=== PATIENT | male | born 1975 | race Caucasian/White ===

== ENCOUNTER 2022-11-18 06:50 | Emergency (ER) | payer OTHER ==
[~2022-11-18] VITALS: Ht 185.4 cm; Wt 83.9 kg
[~2022-11-18 06:50] MED LIST: HYDR-4384 PO; PARO10TA86 PO
--- NOTE | 2022-11-18 07:00 | NUR ---
Patient AOx4, able to express his concerns. Patietn states he fell and due to that he has been experiencing right leg pain that goes up to the right hip. Discussed plan of care, patient verbalized agreement.
[2022-11-18] MEDS ORDERED: KETOROLAC TROMETHAMINE INJ 60 MG/2 ML VIAL IM ONE (07:30)
[2022-11-18] MEDS ORDERED: KETOROLAC TROMETHAMINE INJ 30 MG/ML VIAL ONE (07:44)
--- NOTE | 2022-11-18 07:45 | NUR ---
TONE ROJAS AT BEDSIDE FOR XRAY
[2022-11-18] MEDS ORDERED: IBUPROFEN 400 MG TABLET ONE (07:57)
[2022-11-18] MEDS ORDERED: IBUPROFEN 400 MG TABLET PO ONE (08:00)
--- NOTE | 2022-11-18 08:03 | NUR ---
pt refused meds toradol 30mg IM AND MOTRIN 800MG PO. DR BURK INFORMED
--- NOTE | 2022-11-18 08:17 | NUR ---
DR BURK AT BEDSIDE FOR DISCHARGE INFO., PT INFORMED HE NEEDS A WALKER PRIOR TO DISCHARGE, CALLED [facility]. NO RESPONSE YET
[2022-11-18 09:31] VITALS: BP 112/70
--- NOTE | 2022-11-18 09:31 | NUR ---
Crutches provided- gait training done by John MCDONALD. Pt ambulatory Gait even/steady Patient discharged to previous living condition in stable condition. Declines detention- resources given. Breakfast served prior to dc. Ate 100%. Written and verbal after care instructions given. Patient verbalizes understanding of instruction.
== END 2022-11-18 09:34 | disposition home or self-care (01) ==
LOC: ER 07:04
DX: M25.551 Pain in right hip (principal); I10 Essential (primary) hypertension; E11.9 Type 2 diabetes mellitus without complications; F32.A Depression, unspecified; Z59.00 Homelessness unspecified; Z79.899 Other long term (current) drug therapy; Z88.5 Allergy status to narcotic agent; W19.XXXA Unspecified fall, initial encounter; Y93.89 Activity, other specified; Y92.89 Other specified places as the place of occurrence of the external cause; Y99.8 Other external cause status
CPT/HCPCS: 99283; 73502; J1885

== ENCOUNTER 2024-10-28 13:38 | Emergency (ER) | payer OTHER ==
[~2024-10-28] VITALS: Ht 182.9 cm; Wt 77.1 kg
[2024-10-28 13:55] VITALS: BP 122/64; TEMP 97.4; O2SAT 97
[2024-10-28] MEDS ORDERED: ONDANSETRON HCL/PF 4 MG/2 ML VIAL ONE (15:20)
[2024-10-28 15:25] LABS: BASOPHILS % (AUTO) 0.5 % (0.0-2.0); EOSINOPHILS # (AUTO) 0.1 K/uL (0.0-0.7); HEMATOCRIT 41 % (39-51); HEMOGLOBIN 13.3 g/dL (13.5-17.5); LYMPHOCYTES % (AUTO) 19.7 % (20.0-44.0); MEAN CORPUSCULAR HEMOGLOBIN 22 PG (26.0-33.0); MEAN CORPUSCULAR HGB CONC 33 g/dl (31.0-36.0); MEAN CORPUSCULAR VOLUME 67 fL (80-96); MONOCYTES # (AUTO) 0.3 K/uL (0.1-1.30); MONOCYTES % (AUTO) 2.4 % (2.0-12.0); NEUTROPHILS # (AUTO) 7.9 K/uL (1.8-8.9); NEUTROPHILS % (AUTO) 76.4 % (43.0-81.0); PLATELET COUNT (AUTO) 358 K/uL (150-450); RED BLOOD CELL COUNT(AUTO) 6.11 MIL/uL (4.5-6.0); RED CELL DISTRIBUTION WIDTH 15.5 % (11.5-15.0); WHITE BLOOD COUNT (AUTO) 10.4 K/uL (4.3-11.0)
[2024-10-28] MEDS: IV NS 0.9% 1,000 ML BAG IV ONE (15:28)
[2024-10-28] MEDS: ONDANSETRON HCL/PF 4 MG/2 ML VIAL IVP ONE (15:28)
[2024-10-28 15:47] LABS: APPEARANCE,URINE CLEAR (CLEAR); BILIRUBIN,URINE NEGATIVE (NEGATIVE); BLOOD, URINE NEGATIVE Ery/uL (NEGATIVE); COLOR,URINE YELLOW (YELLOW); KETONES,URINE TRACE mg/dL (NEGATIVE); LEUKOCYTE ESTERASE ,URINE NEGATIVE (NEGATIVE); NITRITE, URINE NEGATIVE (NEGATIVE); PROTEIN,URINE NEGATIVE (NEGATIVE); UGLUCOSE NEGATIVE (NEGATIVE); UROBILINOGEN,URINE 0.2 EU/dL (0.2)
[2024-10-28 15:52] LABS: INR 1.04 (0.91-1.10); PARTIAL THROMBOPLASTIN TIME 22.8 SEC (24.3-34.3)
[2024-10-28 15:54] LABS: ADD URINE CULTURE NO; BACTERIA,URINE None seen /HPF (None Seen); MUCUS,URINE Few /LPF (None Seen); RBC,URINE 0-2 /HPF (0-2); WBC,URINE 0-2 /HPF (0-3)
[2024-10-28 15:57] LABS: SERUM AMMONIA 118 umol/L (11-32)
[2024-10-28 16:03] LABS: AMPHETAMINE, URINE NEGATIVE (NEGATIVE); BARBITURATE, URINE NEGATIVE (NEGATIVE); BENZODIAZEPINE, URINE NEGATIVE (NEGATIVE); CANNABINOID, URINE POSITIVE (NEGATIVE); COCCAINE, URINE NEGATIVE (NEGATIVE); OPIATE, URINE NEGATIVE (NEGATIVE); PHENCYCLIDINE SCREEN,URINE NEGATIVE (NEGATIVE)
[2024-10-28 16:20] LABS: CALCIUM, SERUM 9.1 mg/dL (8.5-10.1); CARBON DIOXIDE 25 mmol/L (21-32); CHLORIDE 101 mmol/L (98-107); CREATININE 0.8 mg/dL (0.6-1.3); GLUCOSE 77 mg/dL (74-106); POTASSIUM 4.1 mmol/L (3.5-5.1); SODIUM SERUM 140 mmol/L (136-145); UREA NITROGEN, BLOOD 10 mg/dL (7-18)
[2024-10-28] MEDS ORDERED: LACTULOSE 10 G/15 ML UDC (PYXIS) ONE (16:23)
[2024-10-28 16:25] LABS: ALANINE AMINOTRANSFERASE 11 U/L (12-78); ALBUMIN 3.3 g/dL (3.4-5.0); ALCOHOL, BLOOD < 3 mg/dL (0-10); ALKALINE PHOSPHATASE 82 U/L (46-116); ASPARTATE AMINOTRANSFERASE 11 U/L (15-37); BILIRUBIN,DIRECT 0.1 mg/dL (0.0-0.2); BILIRUBIN,TOTAL 0.2 mg/dL (0.2-1.0); TOTAL PROTEIN, SERUM 7.4 g/dL (6.4-8.2)
[2024-10-28] MEDS: LACTULOSE 10 G/15 ML UDC (PYXIS) PO ONE (16:28)
[2024-10-28] MEDS ORDERED: DIVA250T4 PO (16:56)
[2024-10-28 20:05] LABS: ANISOCYTOSIS 1+; EOSINOPHILS % (MANUAL) 2 % (0-4); LYMPHOCYTES % (MANUAL) 17 % (16-48); MONOCYTES % (MANUAL) 2 % (0-11.0); NEUTROPHILS % (MANUAL) 79 (42-76); PLATELET ESTIMATE ADEQUATE
[2024-10-28 20:06] LABS: STOMATOCYTES F
== END 2024-10-28 17:17 | disposition left against medical advice (07) ==
LOC: ER 13:39
DX: K76.82 Hepatic encephalopathy (principal); F10.10 Alcohol abuse, uncomplicated; I10 Essential (primary) hypertension; E11.9 Type 2 diabetes mellitus without complications; Z88.5 Allergy status to narcotic agent; Z59.00 Homelessness unspecified; Z79.899 Other long term (current) drug therapy
CPT/HCPCS: 99285; 96374; 96361; 93005; 71045; 82140; 85025; 80048; 80076; 81001; 36415; 84443; 85730; 82962; 80320; 80307; J2405; G0480